=== PATIENT | male | born 1960 | race Caucasian/White ===

== ENCOUNTER 2017-12-05 13:17 | Inpatient (IN) | payer OTHER ==
[2017-12-05 14:05] VITALS: BMI 28.8
--- NOTE | 2017-12-05 19:02 | HP ---
CIWA Score - CIWA Score Nausea/Vomitin-No Nausea/No Vomiting Muscle Tremors: 2 Anxiety: 3 Agitation: 4-Moderately Restless Paroxysmal Sweats: 3 Orientation: 1-Uncertain about Date (no distress) Tacttile Disturbances: 1-Very Mild Itch/Numbness Auditory Disturbances: 0-None Visual Disturbances: 0-None Headache: 0-None Present CIWA-Ar Total Score: 14 Admission ROS BHS - HPI Chief Complaint: " I'm spending too much money on alcohol and I don't to loose my apartment." alcohol withdrawal symptoms Allergies/Adverse Reactions: Allergies Allergy/AdvReac Type Severity Reaction Status Date / Time Fish Containing Products Allergy Severe Difficulty Verified 12/05/17 16:56 Breathing No Known Drug Allergies Allergy Verified 12/05/17 16:57 History of Present Illness: 57 yo male with hx of nicotine, cocaine, and alcohol dependence is here seeking alcohol detox. [facility] on 110 mg, last medicated today, dose pending verification. Last detox fifteen years ago at [facility]. PMHX: GERD, HIV+, depression, anxiety. Denies suicidal / homicidal ideation. Reports hx of suicide attempts 20 years. Denies DTS, blackouts or seizures. Longest period of sobriety three years [id number] Exam Limitations: No Limitations - Ebola screening Have you traveled outside of the country in the last 21 days: No Have you had contact with anyone from an Ebola affected area: No Have you been sick,other than usual withdrawal symptoms: No Do you have a fever: No - Review of Systems Constitutional: Other (weight gain) EENT: reports: Other (impaires vision on the right eye, wears glasses) Respiratory: reports: No Symptoms reported Cardiac: reports: No Symptoms Reported GI: reports: Poor Fluid Intake, Indigestion : reports: No Symptoms Reported Musculoskeletal: reports: Other (chronic left ankle pain, uses cane for ambualtion) Integumentary: reports: Pruritus Neuro: reports: No Symptoms reported Endocrine: reports: See HPI, Increased Thirst Psychiatric: reports: Orientated x3, Anxious Other Systems: Reviewed and Negative Patient History - Patient Medical History Hx Anemia: No Hx Asthma: No Hx Chronic Obstructive Pulmonary Disease (COPD): No Hx Cancer: No Hx Cardiac Disorders: No Hx Congestive Heart Failure: No Hx Hypertension: No Hx Hypercholesterolemia: No Hx Pacemaker: No HX Cerebrovascular Accident: No Hx Seizures: No Hx Dementia: No Hx Diabetes: No Hx Gastrointestinal Disorders: No Hx Liver Disease: No Hx Genitourinary Disorders: No Hx Sexually Transmitted Disorders: No Hx Renal Disease (ESRD): No Hx Thyroid Disease: No Hx Human Immunodeficiency Virus (HIV): Yes (+ 2003 receives medication at [facility] program ) Hx Hepatitis C: No Hx Depression: Yes Hx Suicide Attempt: Yes (Tried to cut wrist in 2015.) Hx Bipolar Disorder: No Hx Schizophrenia: No - Patient Surgical History Past Surgical History: No - PPD History Previous Implant?: Yes Documented Results: Negative w/o proof Implanted On Prior [facility] Admission?: Yes PPD to be Administered?: Yes - Smoking Cessation Smoking history: Current every day smoker Have you smoked in the past 12 months: Yes Aproximately how many cigarettes per day: 2 Hx Chewing Tobacco Use: No Initiated information on smoking cessation: Yes 'Breaking Loose' booklet given: 12/05/17 - Substance & Tx. History Hx Alcohol Use: Yes Hx Substance Use: Yes Substance Use Type: Alcohol, Cocaine Hx Substance Use Treatment: Yes (Last detox fifteen years ago at [facility].) - Substances Abused Alcohol Route: Oral Frequency: Daily Amount used: 3-4 22 OZ BEERS Age of first use: 47 Date of Last Use: 12/04/17 Cocaine Route: Inhalation Frequency: Daily Amount used: $20 Age of first use: 22 Date of Last Use: 12/04/17 Family Disease History - Family Disease History Family Disease History: Diabetes: Grandparent (), Mother (alive) Other Family History: uncle hx DM Admission Physical Exam S - Vital Signs Vital Signs: Vital Signs - 24 hr 12/05/17 13:59 Temperature 98 F Pulse Rate 60 Respiratory 18 Rate Blood Pressure 95/55 - Physical General Appearance: Yes: Mild Distress, Thin, Sweating, Anxious HEENTM: Yes: EOMI, Hearing grossly Normal, Normal ENT Inspection, Normocephalic , Normal Voice, SUSIE, Tm's normal, Other (poor dentition) Respiratory: Yes: Within Normal Limits Neck: Yes: Within Normal Limits Breast: Yes: Breast Exam Deferred Cardiology: Yes: Regular Rhythm, Regular Rate Abdominal: Yes: Normal Bowel Sounds, Non Tender, Flat, Soft Genitourinary: Yes: Within Normal Limits Back: Yes: Normal Inspection Musculoskeletal: Yes: full range of Motion, Gait Steady Extremities: Yes: Normal Capillary Refill, Normal Inspection, Normal Range of Motion Neurological: Yes: peoplesoft hcm consultant II-XII NML intact, Alert, Motor Strength 5/5, Depressed Affect Integumentary: Yes: Normal Color, Warm, Diaphoresis Lymphatic: Yes: Within Normal Limits - Diagnostic (1) Alcohol dependence with withdrawal Current Visit: Yes Status: Acute Qualifiers: Complication of substance-induced condition: uncomplicated Qualified Code(s ): F10.230 - Alcohol dependence with withdrawal, uncomplicated (2) Opioid dependence on agonist therapy Current Visit: Yes Status: Acute Comment: MMTP: on methadone 110 mg dsoe pending verification (3) HIV (human immunodeficiency virus infection) Current Visit: Yes Status: Chronic (4) Nicotine dependence Current Visit: Yes Status: Acute (5) Cocaine dependence Current Visit: Yes Status: Acute Qualifiers: Substance use status: uncomplicated Qualified Code(s): F14.20 - Cocaine dependence, uncomplicated (6) GERD (gastroesophageal reflux disease) Current Visit: Yes Status: Chronic Qualifiers: Esophagitis presence: without esophagitis Qualified Code(s): K21.9 - Gastro -esophageal reflux disease without esophagitis Cleared for Admission [facility] - Detox or Rehab [facility] Level of Care: Medically Managed Detox Regimen/Protocol: Librium [facility] Breath Alcohol Content Breath Alcohol Content: 0 Urine Drug Screen - Results Drug Screen Negative: No Urine Drug Screen Results: KALLIE-Cocaine, MTD-Methadone
[2017-12-05] MEDS ORDERED: chlordiazePOXIDE HCL 25 MG CAPSULE PO PRN (19:08)
[2017-12-05] MEDS ORDERED: MAG HYDROX/AL HYDROX/SIMETH 30 ML UNIT-DOSE CUP PO PRN (19:08)
[2017-12-05] MEDS ORDERED: LOPERAMIDE HCL 2 MG CAPSULE PO PRN (19:08)
[2017-12-05] MEDS ORDERED: ACETAMINOPHEN 325 MG TABLET (FP) PO PRN (19:08)
[2017-12-05] MEDS ORDERED: IBUPROFEN 400 MG TABLET (FP) PO PRN (19:08)
[2017-12-05] MEDS ORDERED: MAGNESIUM CITRATE 300 ML BOTTLE PO PRN (19:08)
[2017-12-05] MEDS ORDERED: MENTHOL/PHENOL 1 EACH UD MM PRN (19:08)
[2017-12-05] MEDS ORDERED: guaiFENesin/D-METHORPHAN HB 10 ML UNIT-DOSE CUPS PO PRN (19:08)
[2017-12-05] MEDS ORDERED: MAGNESIUM HYDROX 2400MG/30ML ORAL SUSPENSION 30 ML CUP PO PRN (19:08)
[2017-12-05] MEDS ORDERED: P-EPHED 60MG/TRIPROLIDI 2.5MG TABLET PO PRN (19:08)
[2017-12-05] MEDS ORDERED: MELATONIN 5 MG TABLETS PO PRN (22:00)
[2017-12-05] MEDS: chlordiazePOXIDE HCL 25 MG CAPSULE PO SCH (22:00)
[2017-12-05] MEDS: THIAMINE HCL 100 MG TABLET (FP) PO SCH (22:01)
[2017-12-06 01:12] LABS: URINE APPEARANCE CLEAR; URINE BILIRUBIN NEGATIVE (<2.0 mg/dL); URINE COLOR YELLOW; URINE GLUCOSE (UA) NEGATIVE (NEGATIVE); URINE KETONE NEGATIVE (NEGATIVE); URINE LEUK ESTERASE NEGATIVE (NEGATIVE); URINE NITRITE NEGATIVE (NEGATIVE); URINE PROTEIN NEGATIVE (NEGATIVE); URINE UROBILINOGEN NEGATIVE mg/dL (0.2-1.0)
[2017-12-06 01:41] LABS: URINE BACTERIA RARE /hpf (NONE SEEN); URINE MUCUS RARE
[2017-12-06] MEDS: chlordiazePOXIDE HCL 25 MG CAPSULE PO SCH ×4 (05:45→22:17)
[2017-12-06] MEDS ORDERED: METHADONE HCL 10 MG TABLET PO ONE (08:43)
[2017-12-06] MEDS ORDERED: METHADONE 80 MG, METHADONE 30 MG PO ONE (09:00)
[2017-12-06] MEDS ORDERED: METHADONE HCL 10 MG TABLET ONE (09:10)
[2017-12-06] MEDS ORDERED: METHADONE HCL 40 MG DISPERSABLE TABLET ONE (09:10)
[2017-12-06] MEDS: PRENATAL VITAMINS W/ FOLIC ACID TABLET (FP) PO SCH (10:06)
[2017-12-06 10:51] LABS: ALBUMIN 3.2 g/dl (3.4-5.0); ALK PHOS 108 U/L (45-117); ANION GAP 7 MMOL/L (8-16); BILIRUBIN,TOTAL 0.4 mg/dL (0.2-1.0); BLOOD UREA NITROGEN 17 mg/dL (7-18); CALCIUM 8.4 mg/dL (8.5-10.1); CHLORIDE 103 mmol/L (98-107); CO2 31 mmol/L (21-32); GLUCOSE,RANDOM 96 mg/dL (74-106); POTASSIUM 4.2 mmol/L (3.5-5.1); SGOT/AST 22 U/L (15-37); SGPT/ALT 19 U/L (12-78); SODIUM 141 mmol/L (136-145); TOT PROT 6.7 g/dl (6.4-8.2)
[2017-12-06 11:43] LABS: HEMATOCRIT 33.9 % (35.4-49); HEMOGLOBIN 11.7 GM/dL (11.7-16.9); MCH 30.6 pg (25.7-33.7); MCHC 34.5 g/dl (32.0-35.9); MEAN CELL VOLUME 88.9 fl (80-96); MEAN PLT VOLUME 8.5 fl (7.5-11.1); PLATELET COUNT 191 K/MM3 (134-434); RBC 3.81 M/mm3 (4.00-5.60); RDW 14.7 % (11.9-15.9); WHITE BLOOD COUNT 5.9 K/mm3 (4.0-10.0)
--- NOTE | 2017-12-06 13:36 | PN ---
[facility] CIWA - CIWA Score Nausea/Vomitin-No Nausea/No Vomiting Muscle Tremors: 4-Moderate,w/Arms Extend Anxiety: 4-Mod. Anxious/Guarded Agitation: 4-Moderately Restless Paroxysmal Sweats: 1-Minimal Palms Moist Orientation: 0-Oriented Tacttile Disturbances: 0-None Auditory Disturbances: 0-None Visual Disturbances: 0-None Headache: 0-None Present CIWA-Ar Total Score: 13 BHS Progress Note (SOAP) Subjective: ANXIETY,SWEATS, IRRITABILITY. PT C/O LEFT ANKLE PAIN DUE TO HX SPRAIN OF ABOUT A WEEK OR MORE AGO. PT REPORTS HE WENT TO SEEK HELP IN ER AND WAS TOLD THERE WAS NO FX BUT SPRAIN. Objective: 12/06/17 13:31 Vital Signs 12/06/17 12/06/17 06:24 10:35 Temperature 97.2 F L 97.0 F L Pulse Rate 51 L 68 Respiratory 18 18 Rate Blood Pressure 111/72 100/61 Laboratory Tests 12/06/17 12/06/17 12/06/17 00:40 06:00 06:00 WBC 5.9 RBC 3.81 L Hgb 11.7 Hct 33.9 L MCV 88.9 MCH 30.6 MCHC 34.5 RDW 14.7 Plt Count 191 MPV 8.5 Sodium 141 Potassium 4.2 Chloride 103 Carbon Dioxide 31 Anion Gap 7 L BUN 17 Creatinine 1.0 Creat Clearance w eGFR > 60 Random Glucose 96 Calcium 8.4 L Total Bilirubin 0.4 AST 22 ALT 19 Alkaline Phosphatase 108 Total Protein 6.7 Albumin 3.2 L Urine Color Yellow Urine Appearance Clear Urine pH 5.0 Ur Specific [place] 1.026 Urine Protein Negative Urine Glucose (UA) Negative Urine Ketones Negative Urine Blood 1+ H Urine Nitrite Negative Urine Bilirubin Negative Urine Urobilinogen Negative Ur Leukocyte Esterase Negative Urine WBC (Auto) 1 Urine RBC (Auto) 6 Urine Bacteria Rare Urine Mucus Rare LEFT ANKLE VERY MINIMAL SWELLING 12/06/17 13:36 Assessment: 12/06/17 13:33 WITHDRAWAL SX Plan: CONTINUE DETOX COLD COMPRESS TO LEFT ANKLE TID PILO BANDAGE TO LEFT ANKLE NEEDED
--- NOTE | 2017-12-06 13:49 | EKG ---
Test Reason : Blood Pressure : / mmHG Vent. Rate : 063 BPM Atrial Rate : 063 BPM P-R Int : 156 ms QRS Dur : 096 ms QT Int : 438 ms P-R-T Axes : 057 -34 025 degrees QTc Int : 448 ms NORMAL SINUS RHYTHM LEFT AXIS DEVIATION INCOMPLETE RIGHT BUNDLE BRANCH BLOCK ABNORMAL ECG NO PREVIOUS ECGS AVAILABLE Confirmed by DOC WILSON MD ([id number]) on 12/06/2017 1:48:48 PM Referred By: Confirmed By:DOC WILSON MD
--- NOTE | 2017-12-06 14:17 | CONSULT ---
[facility] Psychiatric Consult - Data Date of interview: 12/06/17 Admission source: [facility] Identifying data: Patient is a 57 year old single male, father of two, domiciled , and supported by [employer]. This is patient's first admission to [facility]. Pt admitted to for alcohol and cocaine dependence. Substance Abuse History: Smoking Cessation. Smoking history: Current every day smoker. Have you smoked in the past 12 months: Yes. Aproximately how many cigarettes per day: 2. Hx Chewing Tobacco Use: No. Initiated information on smoking cessation: Yes. 'Breaking Loose' booklet given: 12/05/17. - Substance & Tx. History. Hx Alcohol Use: Yes. Hx Substance Use: Yes. Substance Use Type : Alcohol, Cocaine. Hx Substance Use Treatment: Yes (Last detox fifteen years ago at [facility].). - Substances Abused. Alcohol. Route: Oral. Frequency: Daily. Amount used: 3-4 22 OZ BEERS. Age of first use: 47. Date of Last Use: 12/04/17. Cocaine. Route: Inhalation. Frequency: Daily. Amount used: $ 20. Age of first use: 22. Date of Last Use: 12/04/17 Medical History: HIV. Psychiatric History: Patient's first psychiatric contact was at 11 years of age due to erractic behavior in school. Pt. was treated with medications (unable to recall) to treat his restlessness. As an adult patient reports multiple psychiatric hospitalizations, most recently hospitalized at [facility] 1.5 years ago for depression and auditory hallucinations. Pt. is also known to [facility] and [facility]. Outpatient psychiatric services is provided at the [facility]. He is prescribed Seroquel 50mg BID + Seroquel 200mg XL. Pt. reports one suicide attempt via overdose 4 years ago secondary to the passing of his grandmother. Pt. currently denies suicidal and homicidal ideation. Physical/Sexual Abuse/Trauma History: denies. Mental Status Exam - Mental Status Exam Alert and Oriented to: Time, Place, Person Cognitive Function: Good Patient Appearance: Well Groomed Mood: Anxious Affect: Mood Congruent Patient Behavior: Restless, Cooperative Speech Pattern: Appropriate, Pressured Voice Loudness: Normal Thought Process: Intact, Goal Oriented Thought Disorder: Not Present Hallucinations: Denies Suicidal Ideation: Denies Homicidal Ideation: Denies Insight/Judgement: Poor Sleep: Poorly Appetite: Fair Muscle strength/Tone: Normal Gait/Station: Normal Psychiatric Findings - Problem List ([place] 1, 2,3) (1) Alcohol dependence with withdrawal Current Visit: Yes Status: Acute Qualifiers: Complication of substance-induced condition: uncomplicated Qualified Code(s ): F10.230 - Alcohol dependence with withdrawal, uncomplicated (2) Cocaine dependence Current Visit: Yes Status: Acute Qualifiers: Substance use status: uncomplicated Qualified Code(s): F14.20 - Cocaine dependence, uncomplicated (3) Nicotine dependence Current Visit: Yes Status: Acute Qualifiers: Substance use status: in withdrawal (4) Opioid dependence on agonist therapy Current Visit: Yes Status: Chronic Comment: MMTP: on methadone 110 mg dsoe pending verification (5) Bipolar disorder Current Visit: Yes Status: Chronic Comment: Self reports. Pt. is compliant with medication regime. - Initial Treatment Plan Initial Treatment Plan: Psychoeducation provided. Detoxification in progress. Patient's pharmacy contacted at [place] [facility] # [phone] and able to speak to pharmacist. As per pharmacist patient is prescribed seroquel 50mg BID + seroquel 200mg XL. Most recent prescription was given on 11/15/17. Verbal consent given.
[2017-12-06] MEDS: THIAMINE HCL 100 MG TABLET (FP) PO SCH (22:17)
[2017-12-07] MEDS ORDERED: METHADONE HCL 10 MG TABLET ONE (04:01)
[2017-12-07] MEDS ORDERED: METHADONE HCL 40 MG DISPERSABLE TABLET ONE (04:02)
[2017-12-07] MEDS: METHADONE 80 MG, METHADONE 30 MG PO SCH (05:13)
[2017-12-07] MEDS: chlordiazePOXIDE HCL 25 MG CAPSULE PO SCH ×3 (05:13→17:23)
[2017-12-07] MEDS ORDERED: METHADONE HCL 10 MG TABLET PO SCH (06:00)
[2017-12-07] MEDS ORDERED: QUEtiapine FUMARATE 50 MG TABLET PO SCH (10:00)
[2017-12-07] MEDS: PRENATAL VITAMINS W/ FOLIC ACID TABLET (FP) PO SCH (10:15)
--- NOTE | 2017-12-07 15:10 | PN ---
S CIWA - CIWA Score Nausea/Vomitin-No Nausea/No Vomiting Muscle Tremors: 4-Moderate,w/Arms Extend Anxiety: 3 Agitation: 4-Moderately Restless Paroxysmal Sweats: No Perspiration Orientation: 0-Oriented Tacttile Disturbances: 0-None Auditory Disturbances: 0-None Visual Disturbances: 0-None Headache: 0-None Present CIWA-Ar Total Score: 11 BHS Progress Note (SOAP) Subjective: SLIGHT ANXIETY,SWEATS,FATIGUE. Objective: 12/07/17 15:11 Vital Signs 12/07/17 12/07/17 12/07/17 09:05 13:44 13:51 Temperature 96.6 F L 97.7 F 97.7 F Pulse Rate 60 62 62 Respiratory 18 18 18 Rate Blood Pressure 83/62 93/67 93/67 Laboratory Tests 12/06/17 12/06/17 12/06/17 00:40 06:00 06:00 WBC 5.9 RBC 3.81 L Hgb 11.7 Hct 33.9 L MCV 88.9 MCH 30.6 MCHC 34.5 RDW 14.7 Plt Count 191 MPV 8.5 Sodium 141 Potassium 4.2 Chloride 103 Carbon Dioxide 31 Anion Gap 7 L BUN 17 Creatinine 1.0 Creat Clearance w eGFR > 60 Random Glucose 96 Calcium 8.4 L Total Bilirubin 0.4 AST 22 ALT 19 Alkaline Phosphatase 108 Total Protein 6.7 Albumin 3.2 L Urine Color Yellow Urine Appearance Clear Urine pH 5.0 Ur Specific [place] 1.026 Urine Protein Negative Urine Glucose (UA) Negative Urine Ketones Negative Urine Blood 1+ H Urine Nitrite Negative Urine Bilirubin Negative Urine Urobilinogen Negative Ur Leukocyte Esterase Negative Urine WBC (Auto) 1 Urine RBC (Auto) 6 Urine Bacteria Rare Urine Mucus Rare RPR Titer 12/06/17 06:00 WBC RBC Hgb Hct MCV MCH MCHC RDW Plt Count MPV Sodium Potassium Chloride Carbon Dioxide Anion Gap BUN Creatinine Creat Clearance w eGFR Random Glucose Calcium Total Bilirubin AST ALT Alkaline Phosphatase Total Protein Albumin Urine Color Urine Appearance Urine pH Ur Specific [place] Urine Protein Urine Glucose (UA) Urine Ketones Urine Blood Urine Nitrite Urine Bilirubin Urine Urobilinogen Ur Leukocyte Esterase Urine WBC (Auto) Urine RBC (Auto) Urine Bacteria Urine Mucus RPR Titer Nonreactive Assessment: 12/07/17 15:11 WITHDRAWAL SX Plan: CONTINUE DETOX
[2017-12-07] MEDS: chlordiazePOXIDE 5 MG CAPSULE PO SCH (22:05)
[2017-12-07] MEDS: THIAMINE HCL 100 MG TABLET (FP) PO SCH (22:05)
[2017-12-08] MEDS ORDERED: METHADONE HCL 10 MG TABLET ONE (05:14)
[2017-12-08] MEDS ORDERED: METHADONE HCL 40 MG DISPERSABLE TABLET ONE (05:15)
[2017-12-08] MEDS: METHADONE 80 MG, METHADONE 30 MG PO SCH (05:18)
[2017-12-08] MEDS: chlordiazePOXIDE 5 MG CAPSULE PO SCH (05:19)
[2017-12-08 06:56] VITALS: BP 102/64; PULSE 55; TEMP 97.5
--- NOTE | 2017-12-08 13:28 | PN ---
BHS Progress Note (SOAP) Subjective: DETOX COMPLETED. ALERT O X 3. NAD. PT REPORTS HE HAS A PMD, DR. COREAS ON [place] FOR MEDICAL MANAGEMENT. Objective: 12/08/17 13:27 Vital Signs 12/08/17 06:55 Temperature 97.5 F L Pulse Rate 55 L Respiratory 18 Rate Blood Pressure 102/64 Laboratory Tests 12/06/17 12/06/17 12/06/17 00:40 06:00 06:00 WBC 5.9 RBC 3.81 L Hgb 11.7 Hct 33.9 L MCV 88.9 MCH 30.6 MCHC 34.5 RDW 14.7 Plt Count 191 MPV 8.5 Sodium 141 Potassium 4.2 Chloride 103 Carbon Dioxide 31 Anion Gap 7 L BUN 17 Creatinine 1.0 Creat Clearance w eGFR > 60 Random Glucose 96 Calcium 8.4 L Total Bilirubin 0.4 AST 22 ALT 19 Alkaline Phosphatase 108 Total Protein 6.7 Albumin 3.2 L Urine Color Yellow Urine Appearance Clear Urine pH 5.0 Ur Specific [place] 1.026 Urine Protein Negative Urine Glucose (UA) Negative Urine Ketones Negative Urine Blood 1+ H Urine Nitrite Negative Urine Bilirubin Negative Urine Urobilinogen Negative Ur Leukocyte Esterase Negative Urine WBC (Auto) 1 Urine RBC (Auto) 6 Urine Bacteria Rare Urine Mucus Rare RPR Titer 12/06/17 06:00 WBC RBC Hgb Hct MCV MCH MCHC RDW Plt Count MPV Sodium Potassium Chloride Carbon Dioxide Anion Gap BUN Creatinine Creat Clearance w eGFR Random Glucose Calcium Total Bilirubin AST ALT Alkaline Phosphatase Total Protein Albumin Urine Color Urine Appearance Urine pH Ur Specific [place] Urine Protein Urine Glucose (UA) Urine Ketones Urine Blood Urine Nitrite Urine Bilirubin Urine Urobilinogen Ur Leukocyte Esterase Urine WBC (Auto) Urine RBC (Auto) Urine Bacteria Urine Mucus RPR Titer Nonreactive Assessment: 12/08/17 13:27 MEDICALLY STABLE Plan: D/C PT TODAY.
--- NOTE | 2017-12-08 13:29 | DS ---
[facility] Detox Discharge Summary Admission Date: 12/05/17 Discharge Date: 12/08/17 - History Additional Comments: DETOX COMPLETED. FOLLOW UP WITH DR COREAS IN 1-2 WEEKS FOR MEDICAL MANAGEMENT. - Physical Exam Results Vital Signs: Vital Signs Temperature 97.5 F L 12/08/17 06:55 Pulse Rate 55 L 12/08/17 06:55 Respiratory Rate 18 12/08/17 06:55 Blood Pressure 102/64 12/08/17 06:55 O2 Sat by Pulse Oximetry (%) Pertinent Admission Physical Exam Findings: WITHDRAWAL SX Laboratory Tests 12/06/17 12/06/17 12/06/17 00:40 06:00 06:00 WBC 5.9 RBC 3.81 L Hgb 11.7 Hct 33.9 L MCV 88.9 MCH 30.6 MCHC 34.5 RDW 14.7 Plt Count 191 MPV 8.5 Sodium 141 Potassium 4.2 Chloride 103 Carbon Dioxide 31 Anion Gap 7 L BUN 17 Creatinine 1.0 Creat Clearance w eGFR > 60 Random Glucose 96 Calcium 8.4 L Total Bilirubin 0.4 AST 22 ALT 19 Alkaline Phosphatase 108 Total Protein 6.7 Albumin 3.2 L Urine Color Yellow Urine Appearance Clear Urine pH 5.0 Ur Specific [place] 1.026 Urine Protein Negative Urine Glucose (UA) Negative Urine Ketones Negative Urine Blood 1+ H Urine Nitrite Negative Urine Bilirubin Negative Urine Urobilinogen Negative Ur Leukocyte Esterase Negative Urine WBC (Auto) 1 Urine RBC (Auto) 6 Urine Bacteria Rare Urine Mucus Rare RPR Titer 12/06/17 06:00 WBC RBC Hgb Hct MCV MCH MCHC RDW Plt Count MPV Sodium Potassium Chloride Carbon Dioxide Anion Gap BUN Creatinine Creat Clearance w eGFR Random Glucose Calcium Total Bilirubin AST ALT Alkaline Phosphatase Total Protein Albumin Urine Color Urine Appearance Urine pH Ur Specific [place] Urine Protein Urine Glucose (UA) Urine Ketones Urine Blood Urine Nitrite Urine Bilirubin Urine Urobilinogen Ur Leukocyte Esterase Urine WBC (Auto) Urine RBC (Auto) Urine Bacteria Urine Mucus RPR Titer Nonreactive - Treatment Hospital Course: Detox Protocol Followed, Detoxed Safely, Responded well, Discharged Condition Good - Medication Discharge Medications: Ambulatory Orders Quetiapine Fumarate [Seroquel -] 50 mg PO DAILY 12/05/17 Quetiapine Fumarate [Seroquel -] 200 mg PO HS 12/05/17 Quetiapine Fumarate "Xr" [Seroquel XR] 200 mg PO HS 12/06/17 - Diagnosis (1) Alcohol dependence with withdrawal Status: Acute Qualifiers: Complication of substance-induced condition: uncomplicated Qualified Code(s ): F10.230 - Alcohol dependence with withdrawal, uncomplicated (2) Cocaine dependence Status: Acute Qualifiers: Substance use status: uncomplicated Qualified Code(s): F14.20 - Cocaine dependence, uncomplicated (3) Nicotine dependence Status: Acute Qualifiers: Substance use status: in withdrawal (4) Opioid dependence on agonist therapy Status: Chronic (5) GERD (gastroesophageal reflux disease) Status: Chronic Qualifiers: Esophagitis presence: without esophagitis Qualified Code(s): K21.9 - Gastro -esophageal reflux disease without esophagitis (6) HIV (human immunodeficiency virus infection) Status: Chronic - AMA Did Patient Leave Against Medical Advice: No
[2017-12-08] MEDS ORDERED: chlordiazePOXIDE HCL 10 MG CAPSULE PO SCH (23:00)
== END 2017-12-08 09:05 | disposition home or self-care (01) | DRG 773 ==
LOC: YASAS 13:17 → Y3N 17:29
PROC: HZ2ZZZZ Detoxification Services for Substance Abuse Treatment (ICD-10-PCS; principal; 2017-12-05)
DX: F10.230 Alcohol dependence with withdrawal, uncomplicated (principal); F11.20 Opioid dependence, uncomplicated; F14.20 Cocaine dependence, uncomplicated; F17.213 Nicotine dependence, cigarettes, with withdrawal; F31.9 Bipolar disorder, unspecified; Z21 Asymptomatic human immunodeficiency virus [HIV] infection status; K21.9 Gastro-esophageal reflux disease without esophagitis; Z91.5 Personal history of self-harm; Z88.0 Allergy status to penicillin
CPT/HCPCS: 36415; 80053; 81003; 81015; 85027; 86593; 93005; 93010